=== PATIENT | female | born 1995 ===

== ENCOUNTER 2016-12-09 19:29 | Emergency (ER) | payer MEDICAID ==
[2016-12-09 19:44] VITALS: BP 103/67; PULSE 84; RESP 18; TEMP 97.6; O2SAT 98
--- NOTE | 2016-12-09 20:08 | ED PDOC ---
Lower Extremity Pain/Injury Time Seen by Provider: 12/09/16 19:54 Chief Complaint (Nursing): Lower Extremity Problem/Injury Chief Complaint (Provider): Rash on Left Ankle History Per: Patient History/Exam Limitations: no limitations Onset/Duration Of Symptoms: Days (x4) Current Symptoms Are (Timing): Still Present Severity: Moderate Additional Complaint(s): Remedios Lyle is a 21 year old female, with no pertinent past medical history , who presents to the ED on 12/09/16, accompanied by her boyfriend, for the evaluation of a rash on her left lateral ankle that she has noted x4 days; initially small but has spread since onset. Rash, described as pruritic/burning , has been accompanied by some localized swelling, with patient further stating that pain is worse in the morning, when she ambulates and when she attempts to put on her shoes. Denies fever/chills as well as acute injury/trauma. Of note, patient reports she experienced a similar rash in the same location 3 years ago in 2013, stating that it was worse at that time and that she had been prescribed pills during a previous ED evaluation. Unable to remember name of medication. PMD: Magan Past Medical History Reviewed: Historical Data, Nursing Documentation, Vital Signs Vital Signs: Last Vital Signs Temp 97.6 F 12/09/16 19:42 Pulse 84 12/09/16 19:42 Resp 18 12/09/16 19:42 BP 103/67 12/09/16 19:42 Pulse Ox 98 12/09/16 19:42 - Medical History PMH: Bronchitis, Pneumonia - Surgical History Surgical History: No Surg Hx - Family History Family History: States: Unknown Family Hx - Living Arrangements Living Arrangements: With Family - Home Medications Home Medications: Ambulatory Orders Medication Instructions Recorded Ibuprofen [Motrin] 400 mg PO PRN PRN 08/28/16 Ciprofloxacin [Cipro] 500 mg PO BID #6 tab 08/29/16 Metronidazole [Flagyl] 500 mg PO BID #14 tab 08/29/16 Cephalexin [Keflex] 1 tab PO QID #28 capsule 12/09/16 Clotrimazole/Betamethasone 0.5 ml TOP BID #1 bottle 12/09/16 [Lotrisone] - Allergies Allergies/Adverse Reactions: Allergies Allergy/AdvReac Type Severity Reaction Status Date / Time almond Allergy SWELLING Verified 12/04/15 01:35 avocado Allergy SWELLING Verified 12/04/15 01:35 kiwi Allergy SWELLING Verified 12/04/15 01:35 Review of Systems Constitutional: Negative for: Fever, Chills Skin: Positive for: Rash (left lateral ankle) Physical Exam - Reviewed Nursing Documentation Reviewed: Yes Vital Signs Reviewed: Yes - Physical Exam Appears: Positive for: Non-toxic, No Acute Distress Skin: Positive for: Normal Color, Warm, Dry Pulses-Dorsalis Pedis (L): 2+ Extremity: Positive for: Normal ROM (FROM right ankle/foot), Capillary Refill (< 2 seconds), Swelling (mild erythema noted over left lateral malleolus, minimally tender with mild swelling). Negative for: Deformity Neurologic/Psych: Positive for: Alert, Oriented. Negative for: Motor/Sensory Deficits - ECG O2 Sat by Pulse Oximetry: 98 (RA) Pulse Ox Interpretation: Normal Medical Decision Making Medical Decision Makin:54 Initial Impression: cellulitis Previous records reviewed: 09/14/14 ED Evaluation, 09/27/14 ED Evaluation Initial Plan: * Keflex 500mg PO 20:08 Patient is medically stable and requires no further treatment in the ED at this time. Patient will be discharged home with Rx for Keflex. Counseling was provided and all questions were answered regarding diagnosis and need for follow up with either the ED or with her PMD in 2 days time for reevaluation. There is agreement to discharge plan. Return if symptoms persist or worsen. Clinical Impression: cellulitis Scribe Attestation: Documented by Sarah Olvera, acting as a scribe for Charlie Rivera PA-C. Provider Scribe Attestation: All medical record entries made by the Scribe were at my direction and personally dictated by me. I have reviewed the chart and agree that the record accurately reflects my personal performance of the history, physical exam, medical decision making, and the department course for this patient. I have also personally directed, reviewed, and agree with the discharge instructions and disposition. Disposition - Clinical Impression Clinical Impression: Cellulitis - Patient ED Disposition Is Patient to be Admitted: No Counseled Patient/Family Regarding: Diagnosis, Need For Followup, Rx Given - Disposition Disposition: Routine/Home Disposition Time: 20:08 Condition: FAIR Additional Instructions: F/U WITH ED OR PMD ON WEDNESDAY FOR RE-EVALUATION. Prescriptions: Cephalexin [Keflex] 1 tab PO QID #28 capsule Clotrimazole/Betamethasone [Lotrisone] 0.5 ml TOP BID #1 bottle Instructions: Cellulitis (ED)
== END 2016-12-09 20:23 | disposition home or self-care (01) ==
LOC: H.ER 19:29
DX: L03.116 Cellulitis of left lower limb (principal)

== ENCOUNTER 2018-01-09 05:13 | Emergency (ER) | payer MEDICAID, OTHER ==
[2018-01-09 06:00] VITALS: BMI 21.5
[2018-01-09] MEDS ORDERED: Alum-Mag Hydrox-Simethicone Susp (30 mL) PO ONE (06:14)
[2018-01-09 11:27] VITALS: BP 91/50; PULSE 93
--- NOTE | 2018-01-10 11:05 | OBHP ---
Datetime: 01/09/2018 06:01 IP Adm Impression: , intrauterine ; No Active Labor IP Chief Complaint Other: Epigastric Pain IP Adm Impression Other: GERD IP Admit Plan: Observation/Evaluation; Discharge home Admit Comment, IP Provider: 22yo G2Pi with IUP at 21 wks presents here today c/o some epigastric saloni n which was started @ 4:30am, She denies any fever ,chill, vomitting or frequency of urination. Denie s any VB or LOF. No previous h/o this episode Pt ate some rice for dinner, PMhx: Non contributory. Shx: No toxic habits O: Looks well Chest: CTA B/L Heart - RRR Abd: soft, Mild tenderness in the epigastric area, no rebound tenderness FHR - 140s regular [place] - None Ext: Normal Assessment: IUP at 21 weeks GERD Plan: Antacids Observe Counseling on GERD Pt to be d/c with resolution of symptoms F/U with OB doctoe within 1 week. Extremities - PN: Normal Abdomen - PN: Normal Back - PN: Normal Lungs - PN: Normal Heart - PN: Normal Neurologic - PN: Normal General - PN: Normal FHR - Baseline A Provider: 140s Membranes, Provider: Intact Gestation - Est Wks by US: 21.0 EGA AdmitDate IP: 21.1 Vital Signs Provider: Reviewed IP Chief Complaint: Other NICHD Variability Prov Fetus A: Moderate 6-25bpm NICHD Accel Fetus A IP Provider: 10X10 FHR Category Provider Fetus A: Category I NICHD Decel Fetus A IP Provider: None Genitourinary Exam: Normal
== END 2018-01-09 07:00 | disposition home or self-care (01) ==
LOC: H.EROB2 05:13
DX: O26.92 Pregnancy related conditions, unspecified, second trimester (principal); R10.13 Epigastric pain; Z3A.21 21 weeks gestation of pregnancy

== ENCOUNTER 2018-03-14 19:59 | Emergency (ER) | payer MEDICAID ==
[2018-03-14 20:50] VITALS: BMI 22.4
[2018-03-14] MEDS ORDERED: Lactated Ringer's 500 ML IV SCH (21:00)
[2018-03-14 21:51] LABS: ALBUMIN 3.8 g/dL (3.5-5.0); ALT/SGPT 31 U/L (9-52); AST/SGOT 50 U/L (14-36); BLOOD UREA NITROGEN 10 mg/dl (7-17); CALCIUM 9.3 mg/dL (8.4-10.2); GFR AFRICAN-AMERICAN > 60; GFR NON-AFRICAN AMERICAN > 60; LIPASE 63 U/L (23-300)
[2018-03-14] MEDS ORDERED: Lactated Ringer's 1,000 ML IV SCH (22:00)
[2018-03-15 05:23] VITALS: BP 108/61; PULSE 80; RESP 18; TEMP 98.1
--- NOTE | 2018-03-15 19:16 | OBHP ---
Datetime: 03/14/2018 20:26 IP Adm Impression: , intrauterine ; No Active Labor IP Admit Plan: Observation/Evaluation; Discharge home Admit Comment, IP Provider: 22 yo with IUP at 31+ wks presents here today c/o epigastric saloni n sine 5 pm which she associated with some food that she ate, also states 1 nbnb vomit and diarrhea x 1. She denies any fever ,chill, dysuria or frequency of urination. Denies any VB, LOF, ctx. She repor ts a previous similar episode 1 month ago. States using Toms w/o improvement. [facility]: [facility] OBH: x1 2016 PMhx: Non contributory. Shx: No toxic habits VSS PE: see PE tab. A/P: IUP 31 weeks epigastric pain, heartburn likely due to Gastritis. CMP, lipase Pepcid IV fluis Observe Pt to be d/c with resolution of symptoms F/U with OB doctor on next visit 03/16/18. Case seen and examined with Dr Prieto. Kelli PGY1 Addendum: I saw and examined patient at presentation and follow-up. Patient reports mild epigastric tenderne ss. Patient observed at OB ED. Patient reports feeling better and tolerates fluids without any proble ms. After observation, patient discharged home with labor precautions. heart tracing re active, no contractions. Patient will follow-up with clinic as already scheduled. Extremities - PN: Normal Abdomen - PN: Abnormal Lungs - PN: Normal Heart - PN: Normal Neurologic - PN: Normal HEENT - PN: Normal General - PN: Normal FHR - Baseline A Provider: 130 Contraction Comments Provider: none Comments, ACOG Physical Exam: Abd: Soft, nontender, nondistended No rebound, no guarding No Grace's sign [employer]: none EGA AdmitDate IP: 31.4 Vital Signs Provider: Reviewed; Within Normal Limits IP Chief Complaint: Maternal discomfort; Other NICHD Variability Prov Fetus A: Moderate 6-25bpm NICHD Accel Fetus A IP Provider: 15X15 FHR Category Provider Fetus A: Category I NICHD Decel Fetus A IP Provider: None
== END 2018-03-14 23:15 | disposition home or self-care (01) ==
LOC: H.EROB2 19:59
DX: O26.93 Pregnancy related conditions, unspecified, third trimester (principal); R10.13 Epigastric pain; Z3A.31 31 weeks gestation of pregnancy; O21.0 Mild hyperemesis gravidarum
CPT/HCPCS: 80053; 83690; 96361; 96374; 99283; J7120

== ENCOUNTER 2018-05-13 20:08 | Emergency (ER) | payer MEDICAID ==
--- NOTE | 2018-05-13 21:58 | OBHP ---
Datetime: 05/13/2018 21:13 IP Adm Impression: Postterm, intrauterine ; No Active Labor IP Admit Plan: Observation/Evaluation; Discharge home Admit Comment, IP Provider: Pt is a 22 yo 40.1 wk present to DANYELLE due to decrease moevmen t. Pt state that baby stop moving around 14:00 05/13/2018. Pt also complain that she have been having infrequent contraction for past 2 week that are 1 h apart, last for 3 min. Pt have no other complain s. Denies vaginal bleed, or water break. Pt denies N/V chest pain, SOB, abd pain, diarrhea, constipat ion or any other symptoms Allergy none Med: PMH none PSH none OBHX ; 1 vag delivery at 40.1 wk social; Denies smoke, drink or drug use 20:40 Assessment Pt is a 22 yo 40.1 wk present to danyelle due to decrease movement. Pt is lying comfortable in bed Pt state that she is feeling baby moving at this moment VItals WNL strip: tacky Plan Will keep monitoring pt and strip for 1 hour will reassess in 1 h 21:50 Reassessment Pt is lying comfortable in bed with no acute distress Pt report good movement Pt vitals WNL pt strip is reassruing Plan Pt will be discharged home Pt will follow up with care doctor on wednesday05/16/18 Plan discussed with pt and question were answered Discussed with Dr Yifan Santiago1 Attending Note: Patient was seen and evaluated with Resident and I agree with the management plan . Patient was asked to see her regular OB within 1 week. Pelvic Type - PN: Not Done Extremities - PN: Normal Abdomen - PN: Normal Back - PN: Not Done Breast - PN: Not Done Lungs - PN: Normal Heart - PN: Normal Thyroid - PN: Not Done Neurologic - PN: Normal HEENT - PN: Normal General - PN: Normal FHR - Baseline A Provider: 145 Comments, ACOG Physical Exam: Pt is lying comfortable with no acute distress cardio: no extra heart sound heard lung clear in all quadrant abd: BS+, nontender extremities: no calf tenderness EGA AdmitDate IP: 40.1 Vital Signs Provider: Reviewed; Within Normal Limits IP Chief Complaint: Decreased movement NICHD Variability Prov Fetus A: Moderate 6-25bpm NICHD Decel Fetus A IP Provider: None Genitourinary Exam: Not Done DTRs - PN: Not Done
[2018-05-14 03:29] VITALS: BP 113/69; PULSE 80; TEMP 98.1
== END 2018-05-13 21:54 | disposition home or self-care (01) ==
LOC: H.EROB2 20:08
DX: O36.8130 Decreased fetal movements, third trimester, not applicable or unspecified (principal); O48.0 Post-term pregnancy; Z3A.40 40 weeks gestation of pregnancy

== ENCOUNTER 2018-05-16 05:59 | Inpatient (IN) | payer MEDICAID ==
[2018-05-16 07:23] VITALS: BMI 24.0
[2018-05-16] MEDS ORDERED: Lactated Ringer's 1,000 ML IV SCH ×3 (07:30→23:10)
--- NOTE | 2018-05-16 07:59 | OBHP ---
Datetime: 05/16/2018 07:54 IP Adm Impression: Term, intrauterine IP Admit Plan: Admit to unit Admit Comment, IP Provider: Patient is a @ 40.4 wks with contractions and some bleeding this am. Patient reports +FM, no leaking, no issues antepartum. Previous delivery with no complicati ons. Patient reports she had multiple episodes of diarrhea last night, no vomiting, no fever, no abdo gavin pain apart from contractions. VE=2/70/-2. FHR = 140 mod pippa, +accels no decels. VSS. Will start IVF, CBC, CMP, UA and BPP and observe patient. Pelvic Type - PN: Adequate Extremities - PN: Normal Abdomen - PN: Normal Back - PN: Normal Breast - PN: Normal Lungs - PN: Normal Heart - PN: Normal Thyroid - PN: Normal Neurologic - PN: Normal HEENT - PN: Normal General - PN: Normal FHR - Baseline A Provider: 140 EGA AdmitDate IP: 40.4 Vital Signs Provider: Reviewed; Within Normal Limits IP Chief Complaint: Uterine contractions NICHD Variability Prov Fetus A: Moderate 6-25bpm NICHD Accel Fetus A IP Provider: 15X15 FHR Category Provider Fetus A: Category I NICHD Decel Fetus A IP Provider: None Dilatation, Provider: 2 Effacement, Provider: 70 Station, Provider: -2 Genitourinary Exam: Normal DTRs - PN: Normal
[2018-05-16 08:19] LABS: BASO # 0.1 K/uL (0.0-0.2); BASO % 0.5 % (0.0-2.0); EOS % 0.1 % (0.0-4.0); HEMOGLOBIN 11.6 g/dL (12.0-16.0); LYMPH # 2.3 K/uL (1.0-4.3); LYMPH % 14.9 % (20.0-40.0); MEAN CELL VOLUME 91.3 fl (81.0-99.0); MEAN CORPUSCULAR HEMOGLOBIN 29.8 pg (27.0-31.0); MEAN CORPUSCULAR HGB CONC 32.7 g/dL (33.0-37.0); MEAN PLATELET VOLUME 10.8 fl (7.2-11.7); MONO # 0.5 K/uL (0.0-0.8); MONO % 3.1 % (0.0-10.0); NEUT # 12.7 K/uL (1.8-7.0); NEUT % 81.4 % (50.0-75.0); RBC 3.87 Mil/uL (3.80-5.20); RED CELL DISTRIBUTION WIDTH 14.4 % (11.5-14.5); WHITE BLOOD COUNT 15.6 K/uL (4.8-10.8)
[2018-05-16 08:29] LABS: ALB/GLOB RATIO 1.1 (1.0-2.1); ALT/SGPT 31 U/L (9-52); AST/SGOT 27 U/L (14-36); BLOOD UREA NITROGEN 10 mg/dl (7-17); CALCIUM 9.5 mg/dL (8.4-10.2); GFR NON-AFRICAN AMERICAN > 60
[2018-05-16 08:48] LABS: SQUAMOUS EPITHIAL 6 /hpf (0-5); URINE BILIRUBIN NEGATIVE (NEGATIVE); URINE BLOOD NEGATIVE (NEGATIVE); URINE CLARITY SLIGHTY-CLOUDY (Clear); URINE GLUCOSE (UA) NEG (Normal); URINE LEUKOCYTE ESTERASE SMALL Leu/uL (Negative); URINE PROTEIN 100 mg/dL (NEGATIVE); URINE UROBILINOGEN 0.2-1.0 mg/dL (0.2-1.0); WBC CLUMPS RARE /hpf
[2018-05-16 08:53] LABS: URINE COLOR YELLOW (YELLOW)
[2018-05-16] MEDS ORDERED: Lactated Ringer's 1,000 ML IV ONE (10:27)
[2018-05-16] MEDS ORDERED: Fentanyl/Bupivacaine HCl 250 ML EPI ONE (11:05)
[2018-05-16] MEDS ORDERED: Oxytocin 30 UNIT 30 UNITS/500 ML BAG IV ONE ×3 (11:14→19:55)
--- NOTE | 2018-05-16 16:03 | US ---
Date of service: 05/16/2018 PROCEDURE: MODIFIED BIOPHYSICAL PROFILE HISTORY: decreased mov COMPARISON: None available TECHNIQUE: Under sonographic control, biophysical profile was performed. FINDINGS: Intrauterine gestation was identified with cardiac activity measuring 151 beats per minute. breathing movements: 2. movements 2. tone 2. Amniotic fluid 2. Total biophysical profile score 8/8. Amniotic fluid index measures 10.2, low range of normal. IMPRESSION: Biophysical profile score 8/8 ; a single viable intrauterine gestation identified. Amniotic fluid index score of 10.2 measures 10.2, low range of normal.
[2018-05-16] MEDS ORDERED: Oxycodone/Acetaminophen 5/325 mg Tab PO PRN ×2 (20:24→23:10)
[2018-05-16] MEDS ORDERED: Benzocaine/Menthol SPRAY TOP PRN ×2 (20:24→23:10)
[2018-05-17 07:01] LABS: BASO % 0.2 % (0.0-2.0); HEMOGLOBIN 9.5 g/dL (12.0-16.0); LYMPH # 2.3 K/uL (1.0-4.3); LYMPH % 10.3 % (20.0-40.0); MEAN CELL VOLUME 90.7 fl (81.0-99.0); MEAN CORPUSCULAR HEMOGLOBIN 29.7 pg (27.0-31.0); MEAN CORPUSCULAR HGB CONC 32.7 g/dL (33.0-37.0); MEAN PLATELET VOLUME 10.4 fl (7.2-11.7); MONO # 1.1 K/uL (0.0-0.8); MONO % 4.9 % (0.0-10.0); NEUT # 18.8 K/uL (1.8-7.0); NEUT % 84.6 % (50.0-75.0); RBC 3.2 Mil/uL (3.80-5.20); RED CELL DISTRIBUTION WIDTH 13.8 % (11.5-14.5); WHITE BLOOD COUNT 22.3 K/uL (4.8-10.8)
--- NOTE | 2018-05-17 09:29 | OBADHP ---
Datetime: 05/16/2018 09:36 Admit Comment, IP Provider: HPI: 22 y/o with EGA 40.4 Weeks, EDC 05/12/18 who presents today with c/o CONTX that started at 1AM and has increased in intensity, pelvic pain 10/10, Q2 min apart, s he reports vaginal spotting at 4AM, denies LOF. Reports +FM today, last sexual activity 1 day ago. Pt reports ssome episodes of diarrhea last night, no other complains. ROS: as per HPI. OBGYN: [facility] : Reports [place], GBS+,NVD after induction. Current Prgenancy: anemia. care Prov: Dr Lizarraga. PMH: None FMH: None SURGH: None Allerg: NKA MEDS: PNV LABS: HIV neg, HB neg, GBS positive, Rubella +/[place], GC/CL nonreactive, RPR neg, ABORh A+, ab ne g. A/P 22 y/o with 40.4 weeks, EDC 05/12/18 with CONTX Q2min apart, /-2. -Admit to L_D -Monitor maternal CONTX and VS -Monitor FHR trace -CBC w/diff, Type and screen -Hydration with LR -Penicillin (Annotations: Data stored by CPN on behalf of user) FHR - Baseline A Provider: 140 Membranes, Provider: Intact Comments, ACOG Physical Exam: GEN: NAD HEENT: EOMI RESP: CTA b/l CV: RRR, no murmurs heard ABD: soft, gravid. LE: No edema. IP Hx Assessment: The History has been Reviewed and is Current Vital Signs Provider: Reviewed; Within Normal Limits (Annotations: Data stored by CPN on behalf of user) IP Chief Complaint: Uterine contractions NICHD Variability Prov Fetus A: Moderate 6-25bpm NICHD Accel Fetus A IP Provider: 15X15 FHR Category Provider Fetus A: Category I Dilatation, Provider: 5 Effacement, Provider: 90 Station, Provider: -2 EGA AdmitDate IP: 40.4 IP Adm Impression: Term, intrauterine IP Admit Plan: Admit to unit Datetime: 05/16/2018 07:54 Pelvic Type - PN: Adequate Extremities - PN: Normal Abdomen - PN: Normal Back - PN: Normal Breast - PN: Normal Lungs - PN: Normal Heart - PN: Normal Thyroid - PN: Normal Neurologic - PN: Normal HEENT - PN: Normal General - PN: Normal NICHD Decel Fetus A IP Provider: None Genitourinary Exam: Normal DTRs - PN: Normal Datetime: 03/14/2018 20:26 Contraction Comments Provider: none Datetime: 01/09/2018 06:01 IP Chief Complaint Other: Epigastric Pain IP Adm Impression Other: GERD Gestation - Est Wks by US: 21.0
--- NOTE | 2018-05-17 09:31 | OBDS ---
DELIVERY PERSONNEL Delivery Doctor: Isaias Prieto MD Saw Filer: Radha Herron RN / Gricel Alanis RN Anesthesiologist: Mary Ellen Casanova MD MATERNAL INFORMATION Delivery Anesthesia: Epidural Medications in Delivery: Pitocin Estimated Blood Loss (ml): 150 Placenta Cultured: No Maternal Complications: None Provider Comments: Normal spontaneous vaginal delivery. Patient delivered viable with Apgars of 9 and 9 at one and 5 minutes respectively. Placenta delivered spontaneously. Laceration repaired, as above. Uterus firm and appropriately hemostatic following delivery. Patient tolerated delivery and repair well. No complications. Estimated blood loss 300 mL. LABOR SUMMARY EDC: 05/12/2018 00:00 No. Babies in Womb: 1 Attempted: No Labor Anesthesia: Epidural LABOR INFORMATION Reason for Induction: Not Applicable Onset of Labor: 05/16/2018 11:30 Complete Dilatation: 05/16/2018 16:00 Oxytocin: N/A Group B Beta Strep: Positive Antibiotics # of Doses: 3 Antibiotics Time of Last Dose: 1900 Steroids Given: None Reason Steroids Not Administered: Not Applicable Other Reason Not Administered: N/A MEMBRANES Membranes Rupture Method: Artificial Rupture of Membranes: 05/16/2018 16:00 Length of Rupture (hrs): 3.82 Amniotic Fluid Color: Clear Amniotic Fluid Amount: Small STAGES OF LABOR Stage 1 hrs: 4 Stage 1 min: 30 Stage 2 hrs: 3 Stage 2 min: 49 Stage 3 hrs: 0 Stage 3 min: 6 Total Time in Labor hrs: 8 Total Time in Labor min: 25 VAGINAL DELIVERY Episiotomy: None Laceration Extension: First Degree Laceration Repair: Yes Laceration Repair Note: First-degree midline peroneal laceration. Area infiltrated with 1% lidocaine . Laceration repaired with 2. 0 repeat without, location. Patient tolerated repair well. Initial Vag Sponge Count: 5 laps _ 10 4x4's Final Vag Sponge Count: 5 lap _ 10 4x4's Initial Vag Sharps Count: 2 Final Vag Sharps Count: 2 Sponge Count Correct: Yes Sharps Count Correct: Yes Count Comment: sharps and sponge count correct _ MD acknowledged BABY A INFORMATION Infant Delivery Date/Time: 05/16/2018 19:49 Method of Delivery: Vaginal Born in Route : No : N/A Forceps: N/A Vacuum Extraction: N/A Shoulder Dystocia : No SHOULDER DYSTOCIA BABY A Infant Delivery Date/Time: 05/16/2018 19:49 PRESENTATION/POSITION BABY A Presentation: Cephalic Cephalic Presentation: Vertex Breech Presentation: N/A PLACENTA INFORMATION BABY A Placenta Delivery Time : 05/16/2018 19:55 Placenta Method of Delivery: Spontaneous Placenta Status: Delivered SCORES BABY A Heart Rate 1 min: >100 bpm Resp Effort 1 min: Good Cry Reflex Irritability 1 min: Cough or Sneeze or Pulls Away Muscle Tone 1 min: Active Motion Color 1 min: Body [place], Extremities Blue Resuscitation Effort 1 min: Tactile Stimulation SCORE 1 MIN: 9 Heart Rate 5 min: >100 bpm Resp Effort 5 min: Good Cry Reflex Irritability 5 min: Cough or Sneeze or Pulls Away Muscle Tone 5 min: Active Motion Color 5 min: Body [place], Extremities Blue Resuscitation Effort 5 min: N/A SCORE 5 MIN: 9 INFANT INFORMATION BABY A Gestational Age at Delivery: 40.4 Gestational Status: Term Infant Outcome : Liveborn Condition : Stable Sex: Female IDENTIFICATION/MEDS BABY A ID Band Number: [id number] ID Band Location: Left Leg; Left Arm Vitamin K Given : Not Given Erythromycin Given: Not Given WEIGHT/LENGTH BABY A Birthweight (gms): 3510 Weight (lb): 7 Infant Weight (oz): 12 CORD INFORMATION BABY A No. Cord Vessels: 3 Nuchal Cord : N/A Nuchal Cord Other: 0 True Knot: 0 Cord pH Baby Arterial: N/A Cord pH Baby Venous: N/A Cord Blood Taken: Yes Banking/Donate Info: N/A Suction: Mouth; Nose ASSESSMENT BABY A Infant Complications: None Physical Findings at Delivery: Within Normal Limits Respirations: Appears Normal [employer] Hr[employer] Developer/ALS Called : No Care By: Gricel Alanis RN/ Gricel Herron RN Transferred To: Remains with Mother
--- NOTE | 2018-05-17 09:35 | OBDS ---
DELIVERY PERSONNEL Delivery Doctor: Isaias Prieto MD Community Development Aide: Radha Herron RN / Gricel Alanis RN Anesthesiologist: Mary Ellen Casanova MD MATERNAL INFORMATION Delivery Anesthesia: Epidural Medications in Delivery: Pitocin Estimated Blood Loss (ml): 150 Placenta Cultured: No Maternal Complications: None Provider Comments: Normal spontaneous vaginal delivery. Patient delivered viable with Apgars of 9 and 9 at one and 5 minutes respectively. Placenta delivered spontaneously. Laceration repaired, as above. Uterus firm and appropriately hemostatic following delivery. Patient tolerated delivery and repair well. No complications. Estimated blood loss 300 mL. LABOR SUMMARY EDC: 05/12/2018 00:00 EDC: 05/12/2018 00:00 EDC: 05/12/2018 00:00 No. Babies in Womb: 1 Attempted: No Labor Anesthesia: Epidural LABOR INFORMATION Reason for Induction: Not Applicable Onset of Labor: 05/16/2018 11:30 Complete Dilatation: 05/16/2018 16:00 Oxytocin: N/A Group B Beta Strep: Positive Group B Beta Strep: Positive Antibiotics # of Doses: 3 Antibiotics Time of Last Dose: 1900 Steroids Given: None Reason Steroids Not Administered: Not Applicable Other Reason Not Administered: N/A MEMBRANES Membranes Rupture Method: Artificial Rupture of Membranes: 05/16/2018 16:00 Length of Rupture (hrs): 3.82 Amniotic Fluid Color: Clear Amniotic Fluid Amount: Small STAGES OF LABOR Stage 1 hrs: 4 Stage 1 min: 30 Stage 2 hrs: 3 Stage 2 min: 49 Stage 3 hrs: 0 Stage 3 min: 6 Total Time in Labor hrs: 8 Total Time in Labor min: 25 VAGINAL DELIVERY Episiotomy: None Laceration Extension: First Degree Laceration Repair: Yes Laceration Repair Note: First-degree midline peroneal laceration. Area infiltrated with 1% lidocaine . Laceration repaired with 2. 0 repeat without, location. Patient tolerated repair well. Initial Vag Sponge Count: 5 laps _ 10 4x4's Final Vag Sponge Count: 5 lap _ 10 4x4's Initial Vag Sharps Count: 2 Final Vag Sharps Count: 2 Sponge Count Correct: Yes Sharps Count Correct: Yes Count Comment: sharps and sponge count correct _ MD acknowledged BABY A INFORMATION Delivery Date/Time: 05/16/2018 19:49 Method of Delivery: Vaginal Method of Delivery: Vaginal Born in Route : No : N/A Forceps: N/A Vacuum Extraction: N/A Shoulder Dystocia : No SHOULDER DYSTOCIA BABY A Infant Delivery Date/Time: 05/16/2018 19:49 PRESENTATION/POSITION BABY A Presentation: Cephalic Cephalic Presentation: Vertex Breech Presentation: N/A PLACENTA INFORMATION BABY A Placenta Delivery Time : 05/16/2018 19:55 Placenta Method of Delivery: Spontaneous Placenta Status: Delivered SCORES BABY A Heart Rate 1 min: >100 bpm Resp Effort 1 min: Good Cry Reflex Irritability 1 min: Cough or Sneeze or Pulls Away Muscle Tone 1 min: Active Motion Color 1 min: Body [place], Extremities Blue Resuscitation Effort 1 min: Tactile Stimulation SCORE 1 MIN: 9 Heart Rate 5 min: >100 bpm Resp Effort 5 min: Good Cry Reflex Irritability 5 min: Cough or Sneeze or Pulls Away Muscle Tone 5 min: Active Motion Color 5 min: Body [place], Extremities Blue Resuscitation Effort 5 min: N/A SCORE 5 MIN: 9 INFANT INFORMATION BABY A Gestational Age at Delivery: 40.4 Gestational Status: Term Infant Outcome : Liveborn Condition : Stable Sex: Female Sex: Female IDENTIFICATION/MEDS BABY A ID Band Number: [id number] ID Band Location: Left Leg; Left Arm Vitamin K Given : Not Given Erythromycin Given: Not Given WEIGHT/LENGTH BABY A Infant Birthweight (gms): 3510 Infant Weight (lb): 7 Weight (oz): 12 CORD INFORMATION BABY A No. Cord Vessels: 3 Nuchal Cord : N/A Nuchal Cord Other: 0 True Knot: 0 Cord pH Baby Arterial: N/A Cord pH Baby Venous: N/A Cord Blood Taken: Yes Banking/Donate Info: N/A Infant Suction: Mouth; Nose ASSESSMENT BABY A Complications: None Physical Findings at Delivery: Within Normal Limits Respirations: Appears Normal Oven Roaster/ALS Called : No Care By: Gricel Alanis RN/ Gricel Herron RN Transferred To: Remains with Mother
--- NOTE | 2018-05-18 07:38 | OBPPN ---
Datetime: 05/18/2018 06:36 PP Pain Prov: Within normal limits PP Nausea Prov: Denies PP Flatus Prov: Yes PP BM Prov: No PP Breasts Prov: Not Done PP Heart Prov: Normal PP Lungs Prov: Normal PP Abdomen/Uterus Prov: Normal PP Lochia Prov: Normal PP Vulva/Perineum Prov: Not Done PP CVA Tenderness Prov: Not Done PP Extremities Prov: Normal PP C/S Incision Prov: Not Applicable PP Progress Prov: Normal PP Comments Phys Exam Prov: see progress note PP Impression Prov: Normal progression PP Plan Prov: Continue present management; Discharge Vital Signs Provider PP: Reviewed; Within Normal Limits Datetime: 05/17/2018 19:32 PP Progress Note Prov: Pt is seen and examined at bed side. Pt state that she felt tired all day. Pt denies Headache, dizziness, SOB, Palpitation, chest pain, abd pain, or any other symptoms. Pt is abl e to ambulate and void freely. pt have no other complains. Assessment and plan 22 yo female 40.4 SP NVD on 05/16/18 evaluated on PPD1 Pt was comfortable in bed with no acute distress vitals WNL orthostatic pressure, there was no more than >20mmHg in systolic or diastolic pressure. lying flat: 109/90 hr 87, sitting 11/59 Hr 100, Standing 103/63 HR 118 Plan Will continue monitoring pt BP, HR. Will reassess pt tm morning continue same managment YSabri PGY1 Marisela 28 OB hospitalist note. Pt seen on rounds and I agree PGY1 note [place]
--- NOTE | 2018-05-18 09:50 | OBDCSUM ---
Datetime: 05/18/2018 06:37 Discharged to, Provider: Home Follow up at, Provider: Dr Lizarraga Disch Instr Activity: May be up to bathroom; May be up for meals; May Shower Disch Instr Diet: Regular Discharge Instructions, Provider: Routine instructions given Discharge Diagnosis, Provider: Term Delivered Discharge Time: 05/18/2018 10:00 Follow up in weeks, Provider: 6 week Disch Activity Restrictions: No exercising; Minimize walking; Minimize stair-climbing; No sexual act ivity; Nothing in vagina - [place], tampons, douche Discharge Comment, Provider: Discharge Note- EGA: 40.4 Diagnosis: NVD risk factors: None [place]: 05/16/18 @ 19:49 Post- Summary: No complications during post- period. Lochia less than menses. Pt able to pass gas, BM, ambulate and pass urine. Tolerate regular diet, Fundus firm below umbilicus level. CBC post-: .02/15 Discharge Instructions: Encourage PNV 1 tab PO daily Ibuprofen 600mg 1 tab prn for mild-mod pain ER precautions: If excessive bleeding or fever without relief from medication, go to ED PT was urged if feeling sad, mood swing, depression, neglect of baby, suicidal thoughts, homicidal thought should go to ER or call 911 for help Pt should go to her Primary care doctor if have difficulty with breast feeding F/U 4-6 week for PP visit Harrison PGY1
--- NOTE | 2018-05-18 10:06 | OBPPN ---
Datetime: 05/18/2018 06:36 PP Progress Note Prov: S: 22 yo female 40.4 SP NVD on 05/16/18 evaluated on PPD2. Pt is seen an d examined at bed side. No acute event overnight Pt have no other complain. She was able to ambulate and void freely. She denies abdominal pain. Pt state that she have passed gas, but still no BM. Lochi a is still equal to menses. She is and using formula. [facility] PT denies fever, chills, diarrhea, nausea/vomiting, chest pain, dyspnea, and dizziness. O: 11.6/35.4-' .02/15 VS: Stable, WNL GEN: NAD Cardio: S1S2, no murmurs or extra heart sound Lungs: clear breath sounds b/l, no wheezing Abdomen: BS+, appropriate tenderness to palpation. Uterus is firm at umbilicus EXT: No edema, calves non-tender NEURO/PSYCH: AAOx3, no grossly focal deficits, preserved affect and mood. H/H (post ): .02/15 Assessment/Plan: 22 yo female 40.3 SP NVD 05/16/18 evaluated on PPD1. Pt remains afebrile, t olerating pain with medication. Tolerating diet. Will be discharged today 05/18/18. Continue with cur rent management Encourage and ambulating Keep monitoring lochia, fundus and vitals Continue Ibuprofen 600mg q6 for mild-moderate pain. Will discharge home today Harrison PGY1 The patient was seen with the resident I agree with the note
[2018-05-18 16:31] VITALS: BP 108/73; PULSE 88; RESP 20; TEMP 98.6; O2SAT 100
== END 2018-05-18 11:43 | disposition home or self-care (01) | DRG 373 ==
LOC: H.EROB2 05:59 → H.L&D 10:27 → H.OB/GYN 23:09
PROVIDERS: ADMIT Obstetrics & Gynecology; ATTEND Obstetrics & Gynecology
PROC: 10E0XZZ Delivery of Products of Conception, External Approach (ICD-10-PCS; principal; 2018-05-16)
PROC: 0HQ9XZZ Repair Perineum Skin, External Approach (ICD-10-PCS; 2018-05-16)
PROC: 10907ZC Drainage of Amniotic Fluid, Therapeutic from Products of Conception, Via Natural or Artificial Opening (ICD-10-PCS; 2018-05-16)
PROC: 4A1HXCZ Monitoring of Products of Conception, Cardiac Rate, External Approach (ICD-10-PCS; 2018-05-16)
DX: O48.0 Post-term pregnancy (principal); O70.0 First degree perineal laceration during delivery; K21.9 Gastro-esophageal reflux disease without esophagitis; O99.62 Diseases of the digestive system complicating childbirth; O99.820 Streptococcus B carrier state complicating pregnancy; Z3A.40 40 weeks gestation of pregnancy; Z37.0 Single live birth

== ENCOUNTER 2018-07-02 00:05 | Emergency (ER) | payer MEDICAID ==
[2018-07-02 00:05] VITALS: BMI 24.0
[2018-07-02 00:11] VITALS: RESP 18; TEMP 97.8; O2SAT 100
[2018-07-02] MEDS ORDERED: Alum-Mag Hydrox-Simethicone Susp (30 mL) PO ONE (01:28)
[2018-07-02] MEDS ORDERED: Alum-Mag Hydrox-Simethicone Susp (30 mL) ONE (01:52)
--- NOTE | 2018-07-02 01:53 | ED PDOC ---
HPI: Abdomen Time Seen by Provider: 07/02/18 01:00 Chief Complaint (Nursing): Abdominal Pain Chief Complaint (Provider): Abdominal Pain History Per: Patient History/Exam Limitations: no limitations Onset/Duration Of Symptoms: Hrs (x2) Current Symptoms Are (Timing): Still Present Severity: Severe Location Of Pain/Discomfort: Epigastric Quality Of Discomfort: "Pain" Associated Symptoms: denies: Fever, Chills, Nausea, Vomiting, Diarrhea, Chest Pain, Urinary Symptoms Additional Complaint(s): 22 year old female with no significant past medical history presents to the ED with severe, constant, nonradiating epigastric pain that started 2 hours ago. She denies vomiting, diarrhea, fever, urinary symptoms, chest pain or any other medical complaints. She reports having similar pain only once in the past. At the time, she was told it was gastritis. PMD: Dr. Mandel Past Medical History Reviewed: Historical Data, Nursing Documentation, Vital Signs Vital Signs: Last Vital Signs Temp 97.8 F 07/02/18 00:08 Pulse 64 07/02/18 00:08 Resp 18 07/02/18 00:08 BP 119/74 07/02/18 00:08 Pulse Ox 100 07/02/18 00:08 - Medical History PMH: Bronchitis, Pneumonia - Surgical History Surgical History: No Surg Hx - Family History Family History: States: Unknown Family Hx - Immunization History Hx Tetanus Toxoid Vaccination: No Hx Influenza Vaccination: No Hx Pneumococcal Vaccination: No - Home Medications Home Medications: Ambulatory Orders Medication Instructions Recorded Multivit/Folic Acid/I 1 tab PO DAILY MDD 1tab 11/23/17 [] Ibuprofen [Motrin Tab] 600 mg PO Q6 PRN #20 tab 05/18/18 Sennosides A and B [Senokot Tab] 17.2 mg PO HS PRN tab 05/18/18 - Allergies Allergies/Adverse Reactions: Allergies Allergy/AdvReac Type Severity Reaction Status Date / Time almond Allergy SWELLING Verified 07/02/18 00:08 avocado Allergy SWELLING Verified 07/02/18 00:08 kiwi Allergy SWELLING Verified 07/02/18 00:08 Review of Systems ROS Statement: Except As Marked, All Systems Reviewed And Found Negative Gastrointestinal: Positive for: Abdominal Pain Physical Exam - Reviewed Nursing Documentation Reviewed: Yes Vital Signs Reviewed: Yes - Physical Exam Appears: Positive for: Uncomfortable Head Exam: Positive for: ATRAUMATIC, NORMOCEPHALIC Skin: Positive for: Normal Color, Warm, Dry Eye Exam: Positive for: Normal appearance, EOMI, PERRL Cardiovascular/Chest: Positive for: Regular Rate, Rhythm. Negative for: Murmur Respiratory: Positive for: Normal Breath Sounds. Negative for: Respiratory Distress Gastrointestinal/Abdominal: Positive for: Soft, Tenderness (epigastric) Back: Positive for: Normal Inspection Extremity: Positive for: Normal ROM (upper and lower). Negative for: Pedal Edema, Deformity Neurologic/Psych: Positive for: Alert, Oriented (x3) - Laboratory Results Result Diagrams: 07/02/18 01:58 07/02/18 01:58 - ECG O2 Sat by Pulse Oximetry: 100 (RA) Pulse Ox Interpretation: Normal Medical Decision Making Medical Decision Making: Time: 012 Initial Impression: Abdominal pain Differential diagnoses include but are not limited to: Gastritis, peptic ulcer disease, gall bladder disease, pancreatitis Initial Plan: --CT abd and pelvis --CMP --Lipase --Urine preg --Urine dip --CBC with differentials --Lidocaine --Maalox 30 ml --Pepcid 20 mg IVP Time: 035 CT abdomen and pelvis Impression: --Fatty liver --Pancolitis. Infectious and inflammatory etiologies are considered. Consider follow up with colonoscopy. Scribe Attestation: Documented by Paty Mandel, acting as a scribe for Jarret Rivera MD Provider Scribe Attestation: All medical record entries made by the Scribe were at my direction and personally dictated by me. I have reviewed the chart and agree that the record accurately reflects my personal performance of the history, physical exam, medical decision making, and the department course for this patient. I have also personally directed, reviewed, and agree with the discharge instructions and disposition. Disposition - Clinical Impression Clinical Impression: Colitis - Patient ED Disposition Is Patient to be Admitted: No Doctor Will See Patient In The: Office Counseled Patient/Family Regarding: Studies Performed, Diagnosis, Need For Followup - Disposition Referrals: [facility] [Outside] Mark Calvo MD, PhD [Staff Provider] - Disposition: Routine/Home Disposition Time: 04:41 Condition: GOOD Additional Instructions: KINA PHIPPS, thank you for letting us take care of you today. Your provider was Jarret Rivera MD and you were treated for ABD PAIN. The emergency medical care you received today was directed at your acute symptoms. If you were prescribed any medication, please fill it and take as directed. It may take several days for your symptoms to resolve. Return to the Emergency Department if your symptoms worsen, do not improve, or if you have any other problems. Please contact your doctor or call one of the physicians/clinics you have been referred to that are listed on the Patient Visit Information form that is included in your discharge packet. Bring any paperwork you were given at discharge with you along with any medications you are taking to your follow up visit. Our treatment cannot replace ongoing medical care by a primary care provider outside of the emergency department. Thank you for allowing the [facility] team to be part of your care today. If you had an X-Ray or CT scan: A Radiologist will review the ED reading if any change in treatment is needed we will contact you. If you had a blood, urine, or wound culture: It will take several days for the results, if any change in treatment is needed we will contact you. If you had an STI test: It will take 48 hours for the results. Please call after 1 week if you have not heard back. Instructions: Inflammatory Bowel Disease
[2018-07-02 02:09] LABS: BASO % 0.2 % (0.0-2.0); EOS # 0.2 K/uL (0.0-0.7); EOS % 1.5 % (0.0-4.0); HEMOGLOBIN 11.6 g/dL (12.0-16.0); LYMPH # 1.9 K/uL (1.0-4.3); LYMPH % 11.6 % (20.0-40.0); MEAN CORPUSCULAR HEMOGLOBIN 29.6 pg (27.0-31.0); MEAN CORPUSCULAR HGB CONC 32.6 g/dL (33.0-37.0); MEAN PLATELET VOLUME 9.1 fl (7.2-11.7); MONO # 0.6 K/uL (0.0-0.8); MONO % 3.9 % (0.0-10.0); NEUT # 13.7 K/uL (1.8-7.0); NEUT % 82.8 % (50.0-75.0); RBC 3.91 Mil/uL (3.80-5.20); RED CELL DISTRIBUTION WIDTH 14.2 % (11.5-14.5); WHITE BLOOD COUNT 16.6 K/uL (4.8-10.8)
[2018-07-02 02:19] LABS: ALB/GLOB RATIO 1.3 (1.0-2.1); ALBUMIN 4.3 g/dL (3.5-5.0); ALT/SGPT 71 U/L (9-52); AST/SGOT 121 U/L (14-36); BLOOD UREA NITROGEN 12 mg/dl (7-17); CALCIUM 9.4 mg/dL (8.4-10.2); GFR NON-AFRICAN AMERICAN > 60; LIPASE 77 U/L (23-300)
[2018-07-02] MEDS ORDERED: Iohexol 300 100 ML IJ ONE (02:24)
[2018-07-02] MEDS ORDERED: Sodium Chloride 0.9% 50 ML IV ONE (02:25)
[2018-07-02 05:03] VITALS: BP 98/41; PULSE 71
--- NOTE | 2018-07-02 17:02 | CT ---
Date of service: 07/02/2018 PROCEDURE: CT Abdomen and Pelvis with contrast HISTORY: epigastric pain COMPARISON: Comparison is made with 08/29/2016 TECHNIQUE: Contrast dose: 85 cc of Omnipaque 300. Axial and reformatted coronal and sagittal CT images of the abdomen and pelvis were obtained after IV contrast administration. Radiation dose: Total exam DLP = 198.9 mGy-cm. This CT exam was performed using one or more of the following dose reduction techniques: Automated exposure control, adjustment of the mA and/or kV according to patient size, and/or use of iterative reconstruction technique. FINDINGS: LOWER THORAX: Unremarkable. LIVER: Unremarkable. No gross lesion or ductal dilatation. GALLBLADDER AND BILE DUCTS: Unremarkable. PANCREAS: Unremarkable. No gross lesion or ductal dilatation. SPLEEN: Unremarkable. ADRENALS: Unremarkable. No mass. KIDNEYS AND URETERS: Unremarkable. No hydronephrosis. No solid mass. VASCULATURE: Unremarkable. No aortic aneurysm. BOWEL: Questionable mild large bowel wall thickening more prominent at the hepatic flexure. Mildly dilated large bowel loops seen. No evidence of high-grade bowel obstruction. APPENDIX: Normal appendix. PERITONEUM: Unremarkable. No free fluid. No free air. LYMPH NODES: Unremarkable. No enlarged lymph nodes. BLADDER: Unremarkable. REPRODUCTIVE: Unremarkable. BONES: No acute fracture. OTHER FINDINGS: None. IMPRESSION: Questionable mild large bowel wall thickening. Correlate clinically for colitis. Mild constipation. Preliminary report was submitted byUSA at 3:56 a.m. on 07/02/2018
== END 2018-07-02 05:07 | disposition home or self-care (01) ==
LOC: H.ER 00:05
DX: K52.9 Noninfective gastroenteritis and colitis, unspecified (principal)
CPT/HCPCS: 74177; 80053; 81025; 83690; 85025; 96374; 99284; Q9967

== ENCOUNTER 2018-10-15 21:25 | Emergency (ER) | payer MEDICAID ==
[2018-10-15 21:26] VITALS: BMI 24.0
[2018-10-15 21:35] VITALS: O2SAT 100
--- NOTE | 2018-10-15 21:52 | ED PDOC ---
HPI: Female Pain Time Seen by Provider: 10/15/18 21:39 Chief Complaint (Nursing): Female Genitourinary Chief Complaint (Provider): vaginal bleeding History Per: Patient Additional Complaint(s): 22 y/o Female 13 weeks Female who presents with vaginal bleeding that began about 15 minutes prior to arrival to ED. Pt states that she just discovered that she was about 2 days ago and had an ultrasound that determined that she was about 13 weeks . She has not had her menstrual period since prior to her child's in 04/2018. Denies N/V, dizziness, palpitations, passing clots, dysuria or urinary frequency. Past Medical History Reviewed: Historical Data, Nursing Documentation, Vital Signs Vital Signs: Last Vital Signs Temp 98.2 F 10/15/18 21:32 Pulse 101 H 10/15/18 21:32 Resp 16 10/15/18 21:32 BP 112/73 10/15/18 21:32 Pulse Ox 100 10/15/18 21:32 - Medical History PMH: Bronchitis, Pneumonia Denies: Depression, Diabetes, HTN - Family History Family History: States: Unknown Family Hx - Immunization History Hx Tetanus Toxoid Vaccination: No Hx Influenza Vaccination: No Hx Pneumococcal Vaccination: No - Home Medications Home Medications: Ambulatory Orders Medication Instructions Recorded Multivit/Folic Acid/I 1 tab PO DAILY MDD 1tab 11/23/17 [] Ibuprofen [Motrin Tab] 600 mg PO Q6 PRN #20 tab 05/18/18 Sennosides A and B [Senokot Tab] 17.2 mg PO HS PRN tab 05/18/18 Ciprofloxacin HCl [Cipro] 500 mg PO BID #14 tablet 07/02/18 Dicyclomine [Dicyclomine HCl] 10 mg PO TID #15 cap 07/02/18 Metronidazole [Flagyl] 500 mg PO BID #14 tablet 07/02/18 Nitrofurantoin Macrocrystals 100 mg PO BID 5 Days cap 10/16/18 [Macrobid] - Allergies Allergies/Adverse Reactions: Allergies Allergy/AdvReac Type Severity Reaction Status Date / Time almond Allergy SWELLING Verified 10/15/18 21:31 avocado Allergy SWELLING Verified 10/15/18 21:31 kiwi Allergy SWELLING Verified 10/15/18 21:31 Review of Systems Constitutional: Negative for: Fever Gastrointestinal: Negative for: Nausea, Vomiting Genitourinary Female: Positive for: Vaginal Bleeding, Pelvic Pain. Negative for: Dysuria, Frequency, Hematuria Physical Exam - Reviewed Nursing Documentation Reviewed: Yes Vital Signs Reviewed: Yes - Physical Exam Appears: Positive for: Non-toxic Head Exam: Positive for: ATRAUMATIC Skin: Positive for: Normal Color Cardiovascular/Chest: Positive for: Regular Rate, Rhythm Respiratory: Positive for: Normal Breath Sounds Gastrointestinal/Abdominal: Positive for: Tenderness (mild pelvic tenderness) Pelvic Exam: Positive for: External Exam Normal. Negative for: Speculum Exam Normal (dark blood noted in vaginal canal, cervical os closed) Lymphatic: Positive for: Normal Exam Neurologic/Psych: Positive for: Alert, Oriented - ECG O2 Sat by Pulse Oximetry: 100 Medical Decision Making Medical Decision Making: Beta HCG Quantitative Transvaginal U/S U/A U/A: LE small, nitrate negative, WBCs 18K. Urine culture ordered. 0022 US FINDINGS: GESTATION: Single, live intrauterine gestation. UTERUS: Unremarkable. No myometrial mass. CERVIX: Cervix measures 3.6 centimeters and appears closed. OVARIES: Unremarkable. No mass. FREE FLUID: No free fluid. MISCELLANEOUS: [place] rump length measures 5.7 c-arm compatible with 12.2 weeks. heart motion observed at 165 beats per minute. US mean sac diameter measures 5.2 cm compatible of 11.0 weeks. There is a small subchorionic hemorrhage measuring 2.0 x 0.6 x 1.5 cm. There may be a 2nd small subchorionic hemorrhage measuring 3.7 x 1.1 x 3.6 centimeters. Right ovary measures 2.8 x 1.4 x 1.7 cm. Right ovary demonstrates normal waveforms. Left ovary measures 1.9 x 0.9 x 2.1 cm. Left ovary demonstrates normal waveforms. IMPRESSION: 1. Single live intrauterine gestation of approximately 11.4 weeks +/- 6 days. 2. Cervix measures 3.6 centimeters and appears closed. 3. heart motion observed at 165-166 beats per minute. 4. There is a small subchorionic hemorrhage measuring 2.0 x 0.6 x 1.5 cm. 5. A 2nd subchorionic hemorrhage measuring 3.7 x 1.1 x 3.6 centimeters. 7. Normal sonographic appearance of the ovaries. Patient informed of ultrasound results and threatened miscarriage. She was advised to f/u with Marketing Proposal Coordinator BALWINDER and advised to rest as much as possible/avoid heavy lifting. Prescription for Macrobid for possible UTI given upon discharge. Disposition - Clinical Impression Clinical Impression: Threatened - Patient ED Disposition Is Patient to be Admitted: No Counseled Patient/Family Regarding: Studies Performed, Diagnosis, Need For Followup, Rx Given - Disposition Referrals: Haily Padron MD [Staff Provider] - Alivia Crow MD [Staff Provider] - Disposition: Routine/Home Disposition Time: 01:44 Condition: STABLE Additional Instructions: Call multimedia assistant on Wednesday10/17/18 to arrange for f/u and re-evaluation. Return to ER if you have increased abdominal pain/cramping and increased bleeding with passing clots or lightheadedness. You are encouraged to have rest as much as possible and avoid all heavy lifting. Continue to take vitamins. Take full course of antibiotics for possible urinary tract infection as prescribed. Prescriptions: Nitrofurantoin Macrocrystals [Macrobid] 100 mg PO BID 5 Days cap Instructions: Threatened Miscarriage (DC), Bleeding With (DC) Forms: [facility] (Samoan) Print Language: BULGARIAN
[2018-10-15 23:00] LABS: SQUAMOUS EPITHIAL 4 /hpf (0-5); URINE BACTERIA RARE (<OCC); URINE BILIRUBIN NEGATIVE (NEGATIVE); URINE BLOOD LARGE (NEGATIVE); URINE CLARITY CLOUDY (Clear); URINE COLOR YELLOW (YELLOW); URINE GLUCOSE (UA) NEG (NEGATIVE); URINE LEUKOCYTE ESTERASE SMALL Leu/uL (Negative); URINE PROTEIN 30 mg/dL (NEGATIVE)
[2018-10-16 02:32] VITALS: BP 98/65; PULSE 81; RESP 18; TEMP 98.3
--- NOTE | 2018-10-17 11:00 | US ---
Date of service: 10/15/2018 PROCEDURE: First trimester ultrasound HISTORY: 13 weeks , vaginal bleeding and cramps COMPARISON: None TECHNIQUE: Standard protocol for this study/examination. FINDINGS: LMP: Unknown Prior examinations from the current : None TECHNIQUE: Real-time 2D imaging, duplex and color Doppler. FINDINGS: Cardiac activity: Present Rate: 165 BPM Measurements: [place] rump length: 5.57 cm Gestational age based on CRL 12 weeks 1 day Gestational age 11 weeks based on gestational sac measurement 5.20 cm Gestational age derived from LMP: Cannot be ascertained based in the absence of a reliable/ known LMP JONATAN based on LMP: Cannot be ascertained based in the absence of a reliable/ known LMP JONATAN based on biometry: 05/02/2019 Gestational concordance cannot be determined. Yolk sac identified Cervix: No Cervical abnormalities: Negative examination for cervical dilatation or effacement. Closed cervix measuring 3.6 cm Subchorionic hemorrhage: Small subchorionic hemorrhage 2 x 0.6 x 1.5 cm. ADNEXA: Right: 1.4 x 1.7 x 2.8 cm. Normal Doppler arterial waveform documented. Left: 0.9 x 1.9 x 2.1 cm. Normal Doppler arterial waveform documented Fluid in the cul-de-sac: None. IMPRESSION: Eleven weeks 4 days live intrauterine gestation. Small subchorionic hemorrhage. Limitations of the current examination: Absence of reliable LMP precludes assessment for gestational concordance.
== END 2018-10-16 02:36 | disposition home or self-care (01) ==
LOC: H.ER 21:25
DX: O20.0 Threatened abortion (principal); Z3A.13 13 weeks gestation of pregnancy